=== PATIENT | male | born 1950 | race Caucasian/White ===

== ENCOUNTER 2018-07-22 00:28 | Inpatient (IN) | payer MEDICARE, OTHER ==
[~2018-07-22] VITALS: Ht 189.2 cm; Wt 117.5 kg
[2018-07-22 00:57] LABS: BASOPHILS # (AUTO) 0.06 x10^3/uL (0-0.1); BASOPHILS % (AUTO) 1 % (0-1); EOSINOPHILS # (AUTO) 0.13 x10^3/uL (0-0.4); EOSINOPHILS % (AUTO) 1 % (1-7); LYMPHOCYTES # (AUTO) 2.69 x10^3/uL (1-3.4); LYMPHOCYTES % (AUTO) 24 % (22-44); MD NO; MEAN CORPUSCULAR HEMOGLOBIN 30.2 pg (27.5-34.5); MEAN CORPUSCULAR HGB CONC 33.6 g/dL (33.2-36.2); MONOCYTES # (AUTO) 0.52 x10^3/uL (0.2-0.8); MONOCYTES % (AUTO) 5 % (2-9); NEUTROPHILS # (AUTO) 7.86 x10^3/uL (1.8-6.8); NEUTROPHILS % (AUTO) 70 % (42-75); PLATELET COUNT 244 x10^3/uL (130-400); RED BLOOD COUNT 4.54 x10^6/uL (4.38-5.82); RED CELL DISTRIBUTION WIDTH 14.4 % (9.4-14.8)
[2018-07-22] MEDS ORDERED: SODIUM CHLORIDE FLUSH 10ML SYR IVF ONE (01:00)
[2018-07-22] MEDS ORDERED: ASPIRIN 81 MG TABLET CHEW PO ONE (01:00)
[2018-07-22 01:10] LABS: ALANINE AMINOTRANSFERASE 12 U/L (12-78); ALBUMIN 3.2 g/dL (3.4-5.0); ANION GAP 9 mmol/L (5-15); CALCIUM 8.6 mg/dL (8.5-10.1); CHLORIDE 109 mmol/L (98-107); CREATININE 1.26 mg/dL (0.7-1.3)
[2018-07-22 01:11] LABS: INTERNATIONAL NORMALIZED RATIO 0.98 (0.93-1.1); PROTHROMBIN TIME 10.1 Seconds (9.6-11.5)
[2018-07-22 01:14] LABS: ALKALINE PHOSPHATASE 77 U/L (45-117); BILIRUBIN,TOTAL 0.3 mg/dL (0.2-1.0); TOTAL PROTEIN 7.6 g/dL (6.4-8.2); TROPONIN I < 0.015 ng/mL (0.000-0.045)
[2018-07-22] MEDS ORDERED: CLOPIDOGREL 75 MG TABLET ONE (01:16)
[2018-07-22] MEDS ORDERED: CLOPIDOGREL 75 MG TABLET PO ONE (01:30)
[2018-07-22 02:52] VITALS: BP 128/82
[2018-07-22] MEDS ORDERED: CLOP75TA PO (03:16)
[2018-07-22] MEDS ORDERED: SIMV20TA3 PO (03:17)
[2018-07-22] MEDS ORDERED: LEVO50TA5 PO (03:17)
[2018-07-22] MEDS ORDERED: HYDR12.58 PO (03:23)
[2018-07-22] MEDS ORDERED: ONDANSETRON 2MG/ML, 2ML IVPush PRN (03:30)
[2018-07-22] MEDS ORDERED: hydrALAzine 20 MG/ML, 1ML IVPush PRN (03:30)
[2018-07-22] MEDS ORDERED: NITROGLYCERIN 0.4 MG BOTTLE (25 TABS) SL PRN (03:30)
[2018-07-22] MEDS ORDERED: NITROGLYCERIN 0.4 MG/SPRAY SL PRN (03:30)
[2018-07-22] MEDS ORDERED: ACETAMINOPHEN 325 MG TABLET PO PRN (03:30)
[2018-07-22] MEDS ORDERED: ONDANSETRON ODT 4 MG PO PRN (03:30)
[2018-07-22] MEDS ORDERED: LABETALOL 5MG/ML, 20ML IVPush PRN (03:30)
[2018-07-22] MEDS ORDERED: morphine SULFATE 10 MG/ML, 1ML IVPush PRN (03:30)
[2018-07-22] MEDS: HEPARIN 5,000 UNITS/ML, 1ML SQ SCH ×3 (03:51→20:29)
[2018-07-22 04:05] LABS: HEMOGLOBIN A1C 5.6 % (4.2-6.3)
[2018-07-22 04:14] VITALS: BP 134/80
[2018-07-22] MEDS: FUROSEMIDE 20 MG/2 ML IV SCH ×2 (04:15→17:01)
[2018-07-22 05:42] LABS: AMPHETAMINE SCREEN, URINE Negative (Negative); BARBITURATE SCREEN, URINE Negative (Negative); BENZODIAZEPINE SCREEN, URINE Negative (Negative); CANNABINOID SCREEN, URINE Negative (Negative); COCAINE SCREEN, URINE Negative (Negative); METHADONE SCREEN, URINE Negative (Negative); OPIATE SCREEN, URINE Negative (Negative)
[2018-07-22 07:10] VITALS: BP 142/89
[2018-07-22 07:37] LABS: TROPONIN I < 0.015 ng/mL (0.000-0.045)
[2018-07-22 08:07] LABS: MICROSCOPIC INDICATED
[2018-07-22 08:14] LABS: CULTURE INDICATED? NO
[2018-07-22] MEDS ORDERED: LEVOTHYROXINE 50 MCG TABLET PO SCH (09:00)
[2018-07-22] MEDS ORDERED: HYDROCHLOROTHIAZIDE 12.5 MG CAPSULE PO SCH (09:00)
[2018-07-22] MEDS: CLOPIDOGREL 75 MG TABLET PO SCH (09:15)
[2018-07-22] MEDS: SIMVASTATIN 20 MG TABLET PO SCH (09:16)
[2018-07-22] MEDS: LEVOTHYROXINE 75 MCG TABLET PO SCH (09:16)
[2018-07-22 14:46] VITALS: BP 135/68
[2018-07-22 20:29] VITALS: BP 120/79
[2018-07-22] MEDS: LISINOPRIL 10 MG TABLET PO SCH (20:29)
[2018-07-23 01:55] VITALS: BP 131/94
[2018-07-23] MEDS: HEPARIN 5,000 UNITS/ML, 1ML SQ SCH ×2 (03:55→11:30)
[2018-07-23 05:26] LABS: BASOPHILS # (AUTO) 0.05 x10^3/uL (0-0.1); BASOPHILS % (AUTO) 1 % (0-1); EOSINOPHILS # (AUTO) 0.17 x10^3/uL (0-0.4); EOSINOPHILS % (AUTO) 2 % (1-7); LYMPHOCYTES # (AUTO) 3.34 x10^3/uL (1-3.4); LYMPHOCYTES % (AUTO) 33 % (22-44); MD NO; MEAN CORPUSCULAR HEMOGLOBIN 30.4 pg (27.5-34.5); MEAN CORPUSCULAR HGB CONC 34.1 g/dL (33.2-36.2); MEAN CORPUSCULAR VOLUME 89.2 fL (81-97); MEAN PLATELET VOLUME 8.3 fL (7.4-10.4); MONOCYTES # (AUTO) 0.63 x10^3/uL (0.2-0.8); MONOCYTES % (AUTO) 6 % (2-9); NEUTROPHILS % (AUTO) 58 % (42-75); PLATELET COUNT 230 x10^3/uL (130-400); RED BLOOD COUNT 4.88 x10^6/uL (4.38-5.82); RED CELL DISTRIBUTION WIDTH 14.8 % (9.4-14.8)
[2018-07-23 05:40] LABS: ANION GAP 8 mmol/L (5-15); CALCIUM 8.8 mg/dL (8.5-10.1); CHLORIDE 108 mmol/L (98-107); CHOLESTEROL, TOTAL 168 mg/dL (140-239); CREATININE 1.19 mg/dL (0.7-1.3); TRIGLYCERIDES 241 mg/dL (50-200); VLDL CHOLESTEROL 48 mg/dL (0-25)
[2018-07-23 05:42] LABS: CHOL/HDL RATIO 5.1; HDL CHOL % 20 % (26-37); HDL CHOLESTEROL (DIRECT) 33 mg/dL (40-60); LDL CHOLESTEROL,CALCULATED 87 mg/dL (54-169); LDL/HDL RATIO 2.6 (0.5-3.0)
[2018-07-23] MEDS ORDERED: METOPROLOL SUCCINATE 25 MG TAB.ER.24H PO SCH (06:00)
[2018-07-23 07:28] VITALS: BP 112/75
[2018-07-23] MEDS: LEVOTHYROXINE 75 MCG TABLET PO SCH (08:51)
[2018-07-23] MEDS: FUROSEMIDE 20 MG/2 ML IV SCH (08:51)
[2018-07-23] MEDS: CLOPIDOGREL 75 MG TABLET PO SCH (08:52)
[2018-07-23] MEDS: LISINOPRIL 10 MG TABLET PO SCH (08:52)
[2018-07-23] MEDS: SIMVASTATIN 20 MG TABLET PO SCH (08:52)
[2018-07-23] MEDS ORDERED: LISI-167 PO (10:51)
[2018-07-23] MEDS ORDERED: METO25TA91 PO (10:51)
[2018-07-23] MEDS ORDERED: SPIR25TA PO (10:51)
[2018-07-23] MEDS ORDERED: LEVO75TA PO (10:51)
[2018-07-23] MEDS ORDERED: LEVO75TA5 PO (11:21)
== END 2018-07-23 12:04 | disposition home health service (06) | DRG 292 ==
LOC: ED 01:24 → EDIP 01:48 → INTOOBSV 01:48 → 5SO 02:48 → OBSVTOIN 11:50 → DCLOUNGE 07-23 11:50
PROVIDERS: ADMIT Internal Medicine; ATTEND Internal Medicine
DX: I11.0 Hypertensive heart disease with heart failure (principal); E44.1 Mild protein-calorie malnutrition; J96.10 Chronic respiratory failure, unspecified whether with hypoxia or hypercapnia; E78.5 Hyperlipidemia, unspecified; I50.23 Acute on chronic systolic (congestive) heart failure; R00.0 Tachycardia, unspecified; E03.9 Hypothyroidism, unspecified; D72.829 Elevated white blood cell count, unspecified; Z86.73 Personal history of transient ischemic attack (TIA), and cerebral infarction without residual deficits; Z88.6 Allergy status to analgesic agent
CPT/HCPCS: 36415; 71045; 78452; 80048; 80053; 80061; 80307; 81001; 83036; 83880; 84443; 84484; 85025; 85610; 85730; 93005; 93306; 99285; G0378; J1644; A9502; C9898; J1940

== ENCOUNTER 2018-08-18 20:43 | Observation (INO) | payer MEDICARE, OTHER ==
[~2018-08-18] VITALS: Ht 188 cm; Wt 118.9 kg
[~2018-08-18 20:43] MED LIST: CLOP75TA PO; HYDR12.58 PO; LEVO50TA5 PO; LEVO75TA PO; LEVO75TA5 PO; LISI-167 PO; METO25TA91 PO; SIMV20TA3 PO; SPIR25TA PO
[2018-08-18 21:41] LABS: BASOPHILS % (AUTO) 1 % (0-1); EOSINOPHILS # (AUTO) 0.22 x10^3/uL (0-0.4); EOSINOPHILS % (AUTO) 2 % (1-7); LYMPHOCYTES % (AUTO) 35 % (22-44); MD NO; MEAN CORPUSCULAR HEMOGLOBIN 30.4 pg (27.5-34.5); MEAN CORPUSCULAR HGB CONC 33.7 g/dL (33.2-36.2); MEAN CORPUSCULAR VOLUME 90.2 fL (81-97); MEAN PLATELET VOLUME 8.6 fL (7.4-10.4); MONOCYTES # (AUTO) 0.73 x10^3/uL (0.2-0.8); MONOCYTES % (AUTO) 7 % (2-9); NEUTROPHILS # (AUTO) 5.36 x10^3/uL (1.8-6.8); NEUTROPHILS % (AUTO) 54 % (42-75); PLATELET COUNT 191 x10^3/uL (130-400); RED BLOOD COUNT 4.31 x10^6/uL (4.38-5.82); RED CELL DISTRIBUTION WIDTH 14.4 % (9.4-14.8)
[2018-08-18 21:51] LABS: ALBUMIN 3.1 g/dL (3.4-5.0); ANION GAP 9 mmol/L (5-15); CALCIUM 8.3 mg/dL (8.5-10.1); CHLORIDE 110 mmol/L (98-107)
[2018-08-18 21:55] LABS: ALANINE AMINOTRANSFERASE 11 U/L (12-78); ALKALINE PHOSPHATASE 67 U/L (45-117); BILIRUBIN,TOTAL 0.2 mg/dL (0.2-1.0); CREATININE 1.26 mg/dL (0.7-1.3); TOTAL PROTEIN 7.3 g/dL (6.4-8.2); TROPONIN I < 0.015 ng/mL (0.000-0.045)
[2018-08-18 22:00] LABS: FREE T4 (FREE THYROXINE) 1.07 ng/dL (0.76-1.46)
[2018-08-18] MEDS ORDERED: ACETAMINOPHEN 325 MG TABLET PO PRN (23:00)
[2018-08-18] MEDS ORDERED: HYDROcodone/APAP 5/325 TABLET PO PRN (23:00)
[2018-08-18] MEDS ORDERED: ONDANSETRON 2MG/ML, 2ML IVPush PRN (23:00)
[2018-08-18] MEDS ORDERED: ENOXAPARIN 40 MG/0.4 ML SQ SCH (23:00)
[2018-08-18] MEDS ORDERED: morphine SULFATE 10 MG/ML, 1ML IVPush PRN (23:00)
[2018-08-18] MEDS ORDERED: NITROGLYCERIN 0.4 MG/SPRAY SL PRN (23:00)
[2018-08-18] MEDS ORDERED: NITROGLYCERIN 0.4 MG BOTTLE (25 TABS) SL PRN (23:00)
[2018-08-18] MEDS ORDERED: POLYETHYLENE GLYCOL 17 GM PACKET PO PRN (23:00)
[2018-08-18] MEDS ORDERED: DOCUSATE 100 MG CAPSULE PO PRN (23:00)
[2018-08-19 00:14] VITALS: BP 119/78
[2018-08-19 01:28] VITALS: BP 109/61
[2018-08-19 05:41] LABS: TROPONIN I < 0.015 ng/mL (0.000-0.045)
[2018-08-19] MEDS ORDERED: METOPROLOL SUCCINATE 25 MG TAB.ER.24H PO SCH (06:00)
[2018-08-19 06:40] VITALS: BP 112/63
[2018-08-19] MEDS: SODIUM CHLORIDE FLUSH 10ML SYR IVF SCH ×2 (08:26→21:05)
[2018-08-19] MEDS: CLOPIDOGREL 75 MG TABLET PO SCH (08:27)
[2018-08-19] MEDS: FAMOTIDINE 20 MG TABLET PO SCH ×2 (08:27→21:04)
[2018-08-19] MEDS ORDERED: REGADENOSON 0.4 MG/5 ML SYRINGE ONE (08:45)
[2018-08-19] MEDS ORDERED: SIMVASTATIN 20 MG TABLET PO SCH (09:00)
[2018-08-19] MEDS ORDERED: LEVOTHYROXINE 75 MCG TABLET PO SCH (09:00)
[2018-08-19] MEDS ORDERED: LISINOPRIL 10 MG TABLET PO SCH (09:00)
[2018-08-19 12:56] VITALS: BP 113/69
[2018-08-19] MEDS: SENNA/DOCUSATE TABLET PO SCH (13:24)
[2018-08-19] MEDS: SPIRONOLACTONE 25 MG TABLET PO SCH (13:25)
[2018-08-19 14:44] LABS: CHOL/HDL RATIO 4.3; LDL/HDL RATIO 2.1 (0.5-3.0)
[2018-08-19] MEDS: CARVEDILOL 3.125 MG TABLET PO SCH (18:25)
[2018-08-19 20:00] VITALS: BP 113/69
[2018-08-19] MEDS ORDERED: ATORVASTATIN 40 MG TABLET PO SCH (21:00)
[2018-08-19] MEDS ORDERED: ENOXAPARIN 40 MG/0.4 ML SQ SCH (21:00)
[2018-08-20 02:00] VITALS: BP 127/75
[2018-08-20] MEDS: CARVEDILOL 3.125 MG TABLET PO SCH (05:26)
[2018-08-20 05:35] VITALS: BP 125/74
[2018-08-20 06:44] VITALS: BP 112/68
[2018-08-20] MEDS ORDERED: LEVOTHYROXINE 75 MCG TABLET PO SCH (07:21)
[2018-08-20] MEDS: SENNA/DOCUSATE TABLET PO SCH (08:17)
[2018-08-20] MEDS: FAMOTIDINE 20 MG TABLET PO SCH (08:17)
[2018-08-20] MEDS: CLOPIDOGREL 75 MG TABLET PO SCH (08:17)
[2018-08-20] MEDS: SPIRONOLACTONE 25 MG TABLET PO SCH (08:18)
[2018-08-20] MEDS: SODIUM CHLORIDE FLUSH 10ML SYR IVF SCH (08:19)
[2018-08-20] MEDS ORDERED: LISINOPRIL 10 MG TABLET PO SCH (09:00)
[2018-08-20] MEDS ORDERED: LIDOCAINE-MPF 1%, 5ML ONE (11:24)
[2018-08-20] MEDS ORDERED: FENTANYL PF 100 MCG/2ML ONE (11:24)
[2018-08-20] MEDS ORDERED: VERAPAMIL 2.5 MG/ML, 2ML ONE (11:24)
[2018-08-20] MEDS ORDERED: HEPARIN 1,000 UNITS/ML, 10ML ONE (11:24)
[2018-08-20] MEDS ORDERED: DIPHENHYDRAMINE 50 MG/ML, 1ML ONE (11:24)
[2018-08-20] MEDS ORDERED: MIDAZOLAM 1 MG/ML, 2ML ONE (11:24)
[2018-08-20 14:30] VITALS: BP 112/69
[2018-08-20] MEDS ORDERED: CARV3.1212 PO (15:23)
[2018-08-20] MEDS ORDERED: ATOR40TA78 PO (15:23)
== END 2018-08-20 18:28 | disposition home or self-care (01) ==
LOC: ED 22:13 → SUATTDRO 22:29 → EDIP 22:35 → 5SO 23:26
PROVIDERS: ADMIT Family Medicine; ATTEND Family Medicine
DX: I25.10 Atherosclerotic heart disease of native coronary artery without angina pectoris (principal); I42.8 Other cardiomyopathies; I25.2 Old myocardial infarction; I11.0 Hypertensive heart disease with heart failure; I50.23 Acute on chronic systolic (congestive) heart failure; E78.5 Hyperlipidemia, unspecified; E03.9 Hypothyroidism, unspecified; H33.23 Serous retinal detachment, bilateral; Z86.73 Personal history of transient ischemic attack (TIA), and cerebral infarction without residual deficits; Z88.6 Allergy status to analgesic agent; Z87.891 Personal history of nicotine dependence
CPT/HCPCS: 36415; 71045; 78452; 80053; 80061; 83690; 83735; 83880; 84439; 84443; 84484; 85025; 93005; 93017; 93458; 96372; 99156; 99285; A9502; C1769; C1894; C9898; G0378; J1200; J1644; J1650; J2250; J2785; J3010; Q9967

== ENCOUNTER → 2018-09-27 | Outpatient (CLI) | payer MEDICARE, OTHER ==
[~2018-09-27] MED LIST changes: +ATOR40TA78 PO; +CARV3.1212 PO; -HYDR12.58 PO; +HYDROCHLOROTH12.5 MG PO
== END | disposition home or self-care (01) ==
LOC: CVU 07:02
PROVIDERS: ATTEND Internal Medicine Cardiovascular Disease
DX: I70.213 Atherosclerosis of native arteries of extremities with intermittent claudication, bilateral legs (principal); I10 Essential (primary) hypertension; Z86.73 Personal history of transient ischemic attack (TIA), and cerebral infarction without residual deficits
CPT/HCPCS: 93922

== ENCOUNTER 2019-05-20 17:48 | Inpatient (IN) | payer MEDICARE, OTHER ==
[~2019-05-20] VITALS: Ht 188 cm; Wt 107.1 kg
[2019-05-22 14:00] VITALS: BP 90/52
== END 2019-05-22 14:40 | disposition home or self-care (01) | DRG 391 ==
LOC: ED 20:05 → EDIP 21:44 → 3NE 21:45
PROVIDERS: ADMIT Internal Medicine; ATTEND Internal Medicine
DX: A09 Infectious gastroenteritis and colitis, unspecified (principal); N17.0 Acute kidney failure with tubular necrosis; I50.42 Chronic combined systolic (congestive) and diastolic (congestive) heart failure; I11.0 Hypertensive heart disease with heart failure; E86.0 Dehydration; E03.9 Hypothyroidism, unspecified; Z86.73 Personal history of transient ischemic attack (TIA), and cerebral infarction without residual deficits; Z88.8 Allergy status to other drugs, medicaments and biological substances; Z82.0 Family history of epilepsy and other diseases of the nervous system; Z82.49 Family history of ischemic heart disease and other diseases of the circulatory system; Z87.891 Personal history of nicotine dependence
CPT/HCPCS: 36415; 74176; 76700; 80048; 80053; 81001; 83690; 83735; 84100; 85025; 87324; 93005; 99285; G0378; J0696; J2405; J3475; J7030

== ENCOUNTER 2019-08-13 12:26 | Outpatient (CLI) | payer MEDICARE, OTHER ==
[~2019-08-13 12:26] MED LIST changes: +CARV6.2512 PO; +CIPR250T27 PO; +METR500T PO; +SACU1TAB7 PO
[2019-08-13] MEDS ORDERED: OMNIPAQUE 350 MG/ML, 100ML BOTTLE ONE (15:46)
== END 2019-08-13 23:59 | disposition home or self-care (01) ==
LOC: CFH 12:26
PROVIDERS: ATTEND Internal Medicine Gastroenterology
DX: K57.30 Diverticulosis of large intestine without perforation or abscess without bleeding (principal); R10.31 Right lower quadrant pain; R93.89 Abnormal findings on diagnostic imaging of other specified body structures; Z87.898 Personal history of other specified conditions; Z88.8 Allergy status to other drugs, medicaments and biological substances; Z86.73 Personal history of transient ischemic attack (TIA), and cerebral infarction without residual deficits; E78.5 Hyperlipidemia, unspecified; I11.0 Hypertensive heart disease with heart failure; E78.00 Pure hypercholesterolemia, unspecified; Z80.6 Family history of leukemia; Z80.9 Family history of malignant neoplasm, unspecified; Z80.8 Family history of malignant neoplasm of other organs or systems; I50.9 Heart failure, unspecified; Z87.891 Personal history of nicotine dependence; Z82.49 Family history of ischemic heart disease and other diseases of the circulatory system
CPT/HCPCS: 74177; 82565; Q9967

== ENCOUNTER → 2021-04-21 | Outpatient (CLI) | payer MEDICARE, OTHER ==
[~2021-04-21] MED LIST changes: +SIMV20TA19 PO; -SIMV20TA3 PO
== END | disposition home or self-care (01) ==
LOC: CVU 06:55
PROVIDERS: ATTEND Internal Medicine Cardiovascular Disease
DX: I08.0 Rheumatic disorders of both mitral and aortic valves (principal); I11.0 Hypertensive heart disease with heart failure; I25.10 Atherosclerotic heart disease of native coronary artery without angina pectoris; I50.22 Chronic systolic (congestive) heart failure
CPT/HCPCS: 78452; 93017; 93306; 93356; A9502